=== PATIENT | male | born 1960 | race Caucasian/White ===

== ENCOUNTER → 2019-01-30 | Outpatient (CLI) | payer MEDICARE, SELFPAY ==
[2019-01-30 17:28] LABS: Absolute Lymphocyte Count 2.19 X10^3/uL (0.83-4.51); Absolute Neutrophil Count 5.4 X10^3/uL (2.0-7.7); Basophil# 0.05 X10^3/uL; Basophil% 0.6 % (0-1); Eosinophil# 0.29 X10^3/uL; Eosinophils% 3.4 % (0-5); Hematocrit 48.5 % (40-54); Hemoglobin 16.9 g/dL (13.0-16.5); Lymphocyte # 2.19 X10^3/ul (4.0); Lymphocyte % 25.5 % (19-41); Mean Corp Hgb Conc 34.8 g/dL (32-36); Mean Corpuscular Hgb 31.6 pg (27.0-32.0); Mean Corpuscular Volume 90.7 fL (80-94); Mean Platelet Vol. 10.2 fl (6.2-12.0); Monocyte# 0.63 X10^3/uL; Monocyte% 7.3 % (0-10); NRBC Flagged by Analyzer 0 % (0-5); Platelet Count 205 K/mm3 (150-450); RBC Distribution Width CV 12.1 % (11.6-14.6); RBC Distribution Width SD 39.9 fl (35.1-43.9); Red Blood Count 5.35 M/mm3 (4.6-6.2); White Blood Count 8.6 K/mm3 (4.4-11.0)
[2019-01-30 18:05] LABS: AST(SGOT) 36 U/L (15-37); Alanine Aminotransfer ALT/SGPT 72 U/L (16-61); Albumin, Serum 3.6 g/dL (3.2-5.0); Alkaline Phosphatase 72 U/L (45-117); Anion Gap 8 (5-15); BUN 12 mg/dL (7-18); BUN/Creat Ratio 13.4 RATIO (10-20); Calcium,Total 8.9 mg/dL (8.5-10.1); Chloride 105 mmol/L (98-107); Cholesterol 190 mg/dL (200); Creatinine, Serum 0.89 mg/dL (0.70-1.30); EST Glomerular Filtration Rate 92 mL/min (>60); Est Glom Filt Rate - Afr Amer 112 mL/min (>60); Globulin 3.5 g/dL (2.2-4.2); Glucose 84 mg/dL (74-106); High Density Lipoprotein 39 mg/dL; PSA,Total - Annual Screen 2.01 ng/mL (0.00-4.00); Potassium 3.7 mmol/L (3.5-5.1); Protein, Total 7.1 g/dL (6.4-8.2); Sodium Level 142 mmol/L (136-145); Triglycerides 160 mg/dL; Very Low Density Lipoprotein 32 mg/dL (5-40)
== END | disposition home or self-care (01) ==
LOC: LAB 16:23
PROVIDERS: Family Provider Family Medicine; PCP Family Medicine; Visit Provider Family Medicine
DX: E78.5 Hyperlipidemia, unspecified (principal); R07.9 Chest pain, unspecified; Z12.5 Encounter for screening for malignant neoplasm of prostate; I10 Essential (primary) hypertension
CPT/HCPCS: 36415; 80053; 80061; 84153; 85025; G0103

== ENCOUNTER → 2019-02-08 06:22 | Outpatient (CLI) | payer MEDICARE, SELFPAY ==
--- NOTE | 2019-02-08 09:29 | STRESSREP_ITS ---
Stress Test Report Date: 02/08/2019 Procedure: Pharmacologic stress nuclear imaging study Indications: Chest pain Consent: Per the patient Procedure: The patient underwent pharmacologic (Regadenoson) evaluation with a peak heart rate of 99 beats per minute (61 %predicted maximal heart rate) and a peak blood pressure of 140/62 mmHg. The baseline ECG demonstrated normal sinus rhythm. EKG during lexiscan infusion revealed no significant change from baseline. EKG post infusion revealed no significant change from baseline [There were no cardiac dysrhythmias pretest, during pharmacologic infusion, or recovery]. [There was no complaint of chest discomfort during pharmacologic infusion or recovery]. The examination was discontinued secondary to completion of protocol. Impression: 1. Lexiscan stress test test is negative for Lexiscan infusion induced EKG changes of ischemia. 2. Lexiscan stress test test is negative for Lexiscan infusion induced chest pain. 3. Results of the nuclear portion of the test is as below Myocardial perfusion imaging study: Technique: The patient was injected with 14.2 millicuries of technetium 99m Cardiolite and subsequently rest SPECT Cardiolite nuclear imaging was obtained in the horizontal long, vertical long, and short axis views. The patient underwent pharmacologic (Regadenoson) evaluation. Please see above for details. The patient was injected with 44.4 millicuries of technetium 99m Cardiolite and subsequently stress SPECT Cardiolite nuclear imaging was obtained in the horizontal long, vertical long, and short axis views. A gated Cardiolite study at peak stress was obtained. Interpretation: Rest and stress SPECT Cardiolite nuclear imaging status post realignment, normal ization, and attenuation correction demonstrate decreased myocardial radioisotope uptake in the inferior wall on both rest and stress images prior to attenuation correction. After recognition correction there is normal myocardial radioisotope uptake. These findings are suggestive of diaphragmatic attenuation artifact. Gated images reveal no significant regional wall motion abnormalities. The reported LVEF is greater than 70 %. Impression: 1. There is no evidence of significant ischemia or infarction. 2. Estimated ejection fraction is greater than 70%. This note was generated with [employer] software. It may contain incorrect words, spelling, and punctuation that were not noted in checking the note before signing.
== END ==
PROVIDERS: Family Provider Family Medicine; PCP Family Medicine; Referring Provider Family Medicine; Visit Provider Family Medicine
DX: R07.9 Chest pain, unspecified (principal); R06.09 Other forms of dyspnea
CPT/HCPCS: 78452; 93017; A9500; A4216; J2785

== ENCOUNTER → 2019-02-13 12:56 | Outpatient (CLI) | payer MEDICARE, SELFPAY ==
--- NOTE | 2019-02-13 13:00 | ART_ITS ---
Reason For Study: PAD Procedure A bilateral lower extremity continuous wave Doppler with analog waveform analysis and ankle brachial indexes. Left Segmental Pressures Left brachial= 115mmHg. Left posterior tibial artery = 152mmHg. Left dorsalis pedis artery = 145mmHg. Left digit = 119 mmHg. The left dorsalis pedis waveforms are triphasic. The left posterior tibial artery waveforms are triphasic. Right Segmental Pressures Right brachial= 137mmHg. Right posterior tibial artery = 147mmHg. Right dorsalis pedis artery = 132mmHg. Right digit = 105 mmHg. The right dorsalis pedis waveforms are triphasic. The right posterior tibial artery waveforms are triphasic. Indices The right ankle brachial index by the dorsalis pedis is .96. The right ankle brachial index by the posterior tibial artery is 1.07. The right digital-brachial index is .77. The left ankle brachial index by the dorsalis pedis is 1.06. The left ankle brachial index by the posterior tibial artery is 1.11. The left digital-brachial index is .87. Interpretation Summary Triphasic Doppler waveforms are noted at ankle level bilaterally. Resting ankle-brachial indices are normal bilaterally. Digital-brachial indices are normal bilaterally. There is no evidence of significant arterial occlusive disease in the lower extremities bilaterally. Incidental note is made of brachial artery pressures which differ by more than 20 mmHg. This may be due to arterial stenosis in the left upper extremity, which could manifest as a subclavian steal phenomenon. Clinical correlation is advised. Ordering Physician: Rd Mckeon Referring Physician: Rd Mckeon Performed By: HOMER OBRIEN MICKY
== END ==
PROVIDERS: Family Provider Family Medicine; PCP Family Medicine; Referring Provider Family Medicine; Visit Provider Family Medicine
DX: I73.9 Peripheral vascular disease, unspecified (principal); I10 Essential (primary) hypertension; E78.5 Hyperlipidemia, unspecified
CPT/HCPCS: 93922

== ENCOUNTER → 2019-06-11 16:42 | Outpatient (CLI) | payer MEDICARE, SELFPAY ==
--- NOTE | 2019-06-11 16:44 | CT_ITS ---
STUDY: CT ABDOMEN AND PELVIS WITHOUT CONTRAST REASON FOR EXAM: Male, 58 years old. Gross hematuria RADIATION DOSAGE (If Supplied By Facility): DLP = ( 718.49 ) mGycm TECHNIQUE: Transaxial images were obtained from the dome of the diaphragm to the symphysis pubis without oral contrast, and without intravenous contrast. Sagittal and coronal images were reconstructed. Individualized dose optimization techniques were used for this CT. COMPARISON: None. FINDINGS: Evaluation of the abdominal viscera is limited in the absence of intravenous contrast. The visualized lung bases are clear. The visualized portions of the heart and pericardium are within normal limits. Gallbladder is absent or contracted. The liver demonstrates an unremarkable unenhanced appearance. The left hepatic 1.1 cm cyst is present. The spleen is normal in size. The pancreas demonstrates an unremarkable unenhanced appearance. The adrenal glands are within normal limits. There are no obstructing renal stones. There is a right renal lower pole 1 mm stone. There is a right renal midpole 1.2 cm low-density lesion likely representing a cyst. There is no hydronephrosis. Left renal cysts are present measuring up to 4.8 cm. Normal visualized stomach. There is no bowel obstruction or inflammation. Prominent stool is present throughout the colon. The aorta is normal in caliber. There is no abdominal or pelvic free air, free fluid, fluid collection or lymphadenopathy. There are no destructive osseous lesions. A fat-containing right inguinal hernia is present. CT/Abdomen/Pelvis without Cont IMPRESSION: Left renal cyst. Probable right renal midpole cyst. If further clinical concern, consider renal ultrasound. Right renal lower pole nonobstructing 1 mm stone. Fat-containing right inguinal hernia. Prominent stool within the colon. Electronically Signed: Alban Rodriguez, at 20:14 EST Tel , Service support ,
== END ==
PROVIDERS: Family Provider Family Medicine; PCP Family Medicine; Referring Provider Family Medicine; Visit Provider Family Medicine
DX: R31.9 Hematuria, unspecified (principal)
CPT/HCPCS: 74176

== ENCOUNTER → 2021-06-16 12:10 | Outpatient (CLI) | payer MEDICARE, SELFPAY ==
--- NOTE | 2021-06-16 12:13 | RAD_ITS ---
STUDY: X-RAY CHEST REASON FOR EXAM: Male, 60 years old. Chest pain. TECHNIQUE: Frontal and lateral views of the chest. COMPARISON: 08/17/2014. FINDINGS: Stable hyperexpansion with hyperlucency. Blunting of the left costophrenic angle unchanged. Stable healed parenchymal granulomatous calcifications. There is no demonstrated pleural abnormality. Normal size heart. Normal mediastinum and pedro. Normal visualized pulmonary arteries. Normal visualized aortic arch and descending thoracic aorta. Normal visualized thoracic spine. Normal visualized ribs, clavicles, and shoulders. There is no demonstrated abnormality of the visualized soft tissue structures of the upper abdomen. RAD/Chest PA and Lateral IMPRESSION: Stable chest with no acute or active cardiopulmonary disease. Electronically Signed: Paul Zelaya MD at 9:14 EST , Service support ,
== END ==
PROVIDERS: PCP Family Medicine; Referring Provider Family Medicine; Visit Provider Family Medicine
DX: R07.9 Chest pain, unspecified (principal)
CPT/HCPCS: 71046

== ENCOUNTER → 2023-01-03 | Outpatient (CLI) | payer MEDICARE, SELFPAY | END | disposition home or self-care (01) | PROVIDERS: PCP Family Medicine; Visit Provider Surgery | DX: K42.9 Umbilical hernia without obstruction or gangrene (principal) | CPT/HCPCS: 87077; 87081 ==

== ENCOUNTER → 2023-01-06 | Outpatient (CLI) | payer MEDICARE, SELFPAY | END | disposition home or self-care (01) | PROVIDERS: PCP Family Medicine; Referring Provider Family Medicine; Visit Provider Family Medicine | DX: Z00.00 Encounter for general adult medical examination without abnormal findings (principal); Z12.5 Encounter for screening for malignant neoplasm of prostate; I10 Essential (primary) hypertension; R06.09 Other forms of dyspnea; E78.5 Hyperlipidemia, unspecified ==

== ENCOUNTER → 2023-01-13 | Outpatient (CLI) | payer MEDICARE, SELFPAY ==
[2023-01-13 07:19] LABS: Absolute Lymphocyte Count 1.96 X10^3/uL (0.83-4.51); Absolute Neutrophil Count 4.8 X10^3/uL (2.0-7.7); Basophil# 0.07 X10^3/uL; Basophil% 0.9 % (0-1); Eosinophil# 0.24 X10^3/uL; Eosinophils% 3.1 % (0-5); Hemoglobin 17.2 g/dL (13.0-16.5); Lymphocyte # 1.96 X10^3/ul (0.83-4.51); Lymphocyte % 25.1 % (19-41); Mean Corp Hgb Conc 34.4 g/dL (32-36); Mean Corpuscular Hgb 31.3 pg (27.0-32.0); Mean Corpuscular Volume 91.1 fL (80-94); Mean Platelet Vol. 9.5 fl (6.2-12.0); Monocyte# 0.66 X10^3/uL; Monocyte% 8.5 % (0-10); NRBC Flagged by Analyzer 0 % (0-5); Neutrophil # 4.84 X10^3/uL (2.7-7.7); Platelet Count 209 K/mm3 (150-450); RBC Distribution Width CV 12.5 % (11.6-14.6); RBC Distribution Width SD 41.7 fl (35.1-43.9); Red Blood Count 5.49 M/mm3 (4.6-6.2); White Blood Count 7.8 K/mm3 (4.4-11.0)
[2023-01-13 07:42] LABS: ALB/GLOB Ratio 0.9 RATIO (0.9-2.4); AST(SGOT) 35 U/L (15-37); Alanine Aminotransfer ALT/SGPT 49 U/L (16-61); Albumin, Serum 3.6 g/dL (3.2-5.0); Alkaline Phosphatase 70 U/L (45-117); Anion Gap 6 (5-15); BUN 14 mg/dL (7-18); Calcium,Total 8.9 mg/dL (8.5-10.1); Chloride 105 mmol/L (98-107); Cholesterol 161 mg/dL (200); EST Glomerular Filtration Rate 80 mL/min (>60); Est Glom Filt Rate - Afr Amer 97 mL/min (>60); Globulin 3.9 g/dL (2.2-4.2); Glucose 112 mg/dL (74-106); High Density Lipoprotein 41 mg/dL; PSA,Total - Annual Screen 2.97 ng/mL (0.00-4.00); Potassium 3.6 mmol/L (3.5-5.1); Protein, Total 7.5 g/dL (6.4-8.2); Sodium Level 140 mmol/L (136-145); Triglycerides 224 mg/dL; Very Low Density Lipoprotein 45 mg/dL (5-40)
[2023-01-13 10:55] LABS: Hemoglobin A1c 5.5 % (3.8-5.6)
--- NOTE | 2023-01-13 12:12 | STRESSREP_ITS ---
Stress Test Report Date: 01/13/2023 Procedure: Pharmacologic stress nuclear imaging study Indications: Chest pain Consent: Per the patient Procedure: The patient underwent pharmacologic (Regadenoson 0.4mg ) evaluation with a peak heart rate of 85 beats per minute (54%predicted maximal heart rate) and a peak blood pressure of 120/84 mmHg. The baseline ECG demonstrated normal sinus rhythm. The peak pharmacologic ECG demonstrated no ischemic changes. There were no cardiac dysrhythmias pretest, during pharmacologic infusion, or recovery. There was no complaint of chest discomfort during pharmacologic infusion or recovery. The patient was injected with 14.7 millicuries of technetium 99m Cardiolite and subsequently rest SPECT Cardiolite nuclear imaging was obtained in the horizontal long, vertical long, and short axis views. The patient underwent pharmacologic (Regadenoson) evaluation. The patient was injected with 44.6 millicuries of technetium 99m Cardiolite and subsequently stress SPECT Cardiolite nuclear imaging was obtained in the horizontal long, vertical long, and short axis views. A gated Cardiolite study at peak stress was obtained. The examination was stopped secondary to completion of protocol. Rest and stress SPECT Cardiolite nuclear imaging status post realignment, normalization, and attenuation correction demonstrate no fixed or reversible perfusion defects. There is end systolic thickening and brightening. The gated Cardiolite study demonstrates myocardial thickening and inward wall motion. The reported LVEF is 67%. Impression: 1. Pharmacologic (Regadenoson) evaluation 2. Peak pharmacologic ECG with no ischemic changes. 3. There were no cardiac dysrhythmias pretest, during pharmacologic infusion, or recovery. 5. Rest and stress SPECT Cardiolite nuclear imaging demonstrate relative uniform tracer uptake and myocardial perfusion appearing within normal limits. 6. The gated Cardiolite study reports an LVEF of 67%. This note was generated with [employer] software. It may contain incorrect words, spelling, and punctuation that were not noted in checking the note before signing.
== END | disposition home or self-care (01) ==
PROVIDERS: PCP Family Medicine; Referring Provider Family Medicine; Visit Provider Family Medicine
DX: R07.9 Chest pain, unspecified (principal); I10 Essential (primary) hypertension; R06.09 Other forms of dyspnea; E78.5 Hyperlipidemia, unspecified; Z12.5 Encounter for screening for malignant neoplasm of prostate; R73.01 Impaired fasting glucose
CPT/HCPCS: 36415; 78452; 80053; 80061; 83036; 84153; 85025; 93017; A9500; A4216; G0103; J2785

== ENCOUNTER → 2023-01-16 | Outpatient (CLI) | payer MEDICARE, SELFPAY ==
--- NOTE | 2023-01-16 17:01 | CT_ITS ---
INDICATION: Small bowel obstruction EXAMINATION: CT ABDOMEN AND PELVIS WITH CONTRAST - CT Abdomen And Pelvis W/ Contrast Injection TECHNIQUE: Helically acquired images were obtained of the abdomen and pelvis following IV contrast. A radiation dose optimization technique was used for this scan. IV Contrast dosage and agent: 100 mL Isovue-300 Oral contrast: 100 mL Redicat. COMPARISON: June 11, 2019. FINDINGS: LOWER CHEST: Lung bases are clear. No cardiomegaly or pericardial effusion. LIVER: Homogeneous. No focal mass. GALLBLADDER AND BILIARY TREE: No calcified gallstones. No gallbladder distension or wall edema. No intra- or extrahepatic biliary ductal dilation. PANCREAS: No focal cystic or solid mass. SPLEEN: Normal size without focal cystic or solid mass. ADRENAL GLANDS: No nodules. KIDNEYS AND URETERS: 7.1 cm exophytic left renal lower pole with single thin septation increased in size from 4.8 cm June 11, 2019. Evaluation for internal nodularity is limited by beam hardening artifact and motion. Other bilateral Bosniak 1 renal cysts for which no imaging follow-up is required. Normal renal size and position. No hydronephrosis. Minimal bilateral senescent perinephric stranding. PERITONEUM: No ascites or free air. No other fluid collection. BOWEL: No acute gastric finding. No small bowel distention or focal wall thickening. Oral contrast extends into the mid to distal ileum. Unremarkable terminal ileum. Normal small appendix with tip remaining in the pelvis, extending toward a right inguinal fat-containing hernia. Cecum is located in the posterior central pelvis. No gross colonic wall thickening. Moderate colonic stool. LYMPH NODES: No enlarged mesenteric or retroperitoneal lymph nodes. VESSELS: Aortic atherosclerosis without ectasia.. URINARY BLADDER: Unremarkable. REPRODUCTIVE ORGANS: Prostate 5.1 x 4.1 x 5.2 cm (55ml). ABDOMINAL WALL: Fat-containing right inguinal hernia without inflammation.. Prior umbilical hernia repair suggested, unchanged from June 13, 2019. BONES: No lytic or blastic abnormality. Lumbar laminectomy changes with L3-4, L4-5 and L5-S1 disc spacers, L4-5 and L5-S1 anterior fixation, and L3, L4, and S1 posterior transpedicular fixation. No evidence for hardware failure or fracture. CT/Abdomen/Pelvis WITH Contrast IMPRESSION: No evidence of bowel obstruction. Moderate colonic stool as can be seen with constipation. Interval enlargement of indeterminate left renal lower pole exophytic 7.1 cm cystic mass. Thickness of the dividing septation is difficult to assess due to motion and beam hardening artifact from spinal hardware. Recommend renal ultrasound to assess for internal nodularity. If ultrasound is not definitive, MRI of the kidney may be able to better characterize Right inguinal fat-containing hernia without inflammation. Large prostate. Electronically Signed: Anoop Hernandez MD at 9:06 EDT ,
== END | disposition home or self-care (01) ==
LOC: CT 16:58
PROVIDERS: PCP Family Medicine; Referring Provider Surgery; Visit Provider Surgery
DX: Z87.19 Personal history of other diseases of the digestive system (principal)
CPT/HCPCS: 74177; Q9967

== ENCOUNTER 2023-02-03 09:28 | Day surgery (SDC) | payer MEDICARE, SELFPAY ==
--- NOTE | 2023-02-03 | HERN_PTH ---
PATIENT: ALISIA LIZARRAGA LOC: [facility] [place] U#:[id number] AGE/SX: 62/M ROOM: RE02/03/[address]: Dr. Glynn Vazquez MD : 1960 BED: DIS: 02/03/2023 SPEC #: [id number] RECD: 02/03/23 14:25 STATUS: MAGALY REYoko #: [id number] ADALGISA: 02/03/23 00:[address]: Glynn Vazquez DEPT: SURGICAL PATHOLOGY RECD BY: Francisco Mujica ENTERED: 02/06/23 08:59 SP TYPE: Hernia OTHR DR: Dr. Rd Mckeon, DO Tissues: A - HERNIA B - LIPOMA OF CORD Procedures: Surgery Specimen Level II Surgery Specimen Level III HEADER OPERATION: Hernia, open inguinal with mesh PRE-OP DIAGNOSIS: Right inguinal hernia TISSUE SUBMITTED: A - Hernia contents, B - Cord lipoma MICROSCOPIC DIAGNOSIS A. Hernia contents, excision: Fibrofatty tissue with vascular congestion consistent with hernia contents. B. Cord lipoma, excision: Mature adipose tissue with vascular congestion consistent with cord lipoma. AM:annalee 02/07/2023 MICROSCOPIC DESCRIPTION Slides are reviewed. GROSS DESCRIPTION A - Received in fixative is one container labeled with the patient's name and designated hernia contents. The specimen consists of an irregular fragment of garcia-yellow fibrofatty tissue measuring 5.0 x 4.5 x 1.0 cm. Serial sections do not reveal mass lesions. Sprayer Hand sections are submitted in one cassette. B - Received in fixative is one container labeled with the patient's name and designated cord lipoma. The specimen consists of an elongated fragment of yellow fatty tissue measuring 5.5 cm in length and 1.0 cm in diameter. Serial sections reveal homogenous yellow cut surfaces. Sprayer Hand sections are submitted in one cassette. / AM:annalee 02/06/2023 TC:1 CPT: 06151, 54080
[2023-02-03 09:51] VITALS: BP 134/79; PULSE 60; RESP 16; TEMP 36.3; O2SAT 95; BMI 31.0
[2023-02-03] MEDS: Lactated Ringers 1,000 ML 15 ML IV ×2 (10:10→13:27)
--- NOTE | 2023-02-03 11:02 | PCM.HP.BLA ---
History and Physical Date of Admission: 02/03/23 Date of Service: 01/03/23 MR#: [id number] Acct: [id number] Name: AMARA LIZARRAGA Rep #: [id number] : 1960 Provider: Dr. Glynn Vazquez MD Age/Sex: 62/M Location: [facility] Status: Signed Intake Vital Signs 01/03/2315:13 Height 5 ft 11 in Weight: 228 lb BMI 31.8 BP 130/82 H Blood Pressure Location Rt brachial Position Sitting Respiration 17 Pulse 70 Pulse Source Monitor Temp 97.6 F L Temp Source Temporal Pulse Oximetry (%) 94 Oxygen Delivery Method room air Intake Visit Reasons: INGUINAL HERNIA Chief Complaint: hernia Is patient in pain?: Yes Allergies codeine Allergy (Verified 01/03/23 15:15) Itching Medications hydrochlorothiazide 50 mg tablet 50 mg PO DAILY 08/17/14 [History Confirmed 01/03/23] omeprazole 10 mg capsule,delayed release 10 mg PO DAILY 08/17/14 [History Confirmed 01/03/23] aspirin 81 mg chewable tablet 81 mg PO DAILY@0800 ##90 08/20/14 [Rx Confirmed 01/03/23] atorvastatin 40 mg tablet 40 mg PO QHS #30 TABLETS 08/20/14 [Rx Confirmed 01/03/23] PFSH Social History (Updated 01/03/23 @ 15:13 by Dominique Haider) Smoking Status: Former smoker alcohol intake: never substance use type: does not use HPI HPI HPI: Patient is a 62-year-old male who presents for evaluation of a right inguinal hernia. He is referred from Dr. Mckeon. This finding was first noticed by CAT scan incidentally in 2019. Patient is not able to recall how this occurred. However, he reports that since becoming aware of this hernia he has noticed both pain and growth of the hernia. He notes that the pain is particularly likely during a coughing episode or when moving the wrong direction. He denies any impact from a time of day standpoint. He estimates that it has grown to about the size of his hand from hardly detectable previously. He denies any unexplained absence of bowel activity. When queried about his bowels, he states that they are all over the place and describes alternating between diarrhea and constipation for the last 1 year. He states that he primarily deals with diarrhea. He reports that he can go 5-7 times in a day but then may go 3 days without a bowel movement. He confirms that he has had a prior colonoscopy, but estimates that it has been 12 years ago or so. He states that his last colonoscopy was with Dr. Rosenthal of the [facility] here in [place]. He denies any history of polyps. He is not noticing any blood or dark stools with his bowel movements. He denies any straining with his bowel movements. Mr. Lizarraga believes that his niece was diagnosed with Crohn's disease. Patient has a personal history of smoking, but states that he is currently vaping and this is led to him being able to come off of cigarettes. Patient has no personal history of recurrent cutaneous infections including staph. Pertinent surgical history includes: 4 prior back surgeries of the lower spine, laparoscopic cholecystectomy, and 3 umbilical hernia repairs including 2 mesh patch repairs and a laparoscopic mesh repair. Patient notes that during the discussion about a possible surgery his PCP scheduled him for a stress test and this is now pending for 01/13/2023. ROS General General: Yes fatigue; No weight change, appetite, colon cancer, breast cancer or weakness HEENT HEENT: No difficulty swallowing, eye injury, eye surgery, swollen glands or hoarseness Endo Endocrine: No thyroid disease, diabetes mellitus, thyroid cancer, Hair loss, heat intolerance or cold intolerance Skin Skin: No rash or changing moles Musc Musculoskeletal: Yes back problems and arthritis; No rheumatoid arthritis, gout or joint pain Cardio Cardiovascular: No murmur, pacemaker, heart disease, atrial fibrillation, high blood pressure, heart attack, heart stent, palpitations, shortness of breat with exertion or chest pain Psych Psychiatric: No depression, anxiety or hearing voices Resp Respiratory: No shortness of breath, No sleep apnea, No cough, No COPD, No asthma, No emphysema and No wheezing Gastro Gastrointestinal: Yes abdominal pain, Yes nausea or vomiting, Yes diarrhea, Yes constipation, No blood in stool, Yes acid reflux, No hemorrhoids, No ulcers, No gallbladder problem and No black,tarry stools Jeffery Hematologic: No blood thinners, No blood disorders, No bleeding, No anemia and No blood clots Neuro Neurologic: No system reviewed and no additional complaints, except as documented, No as per HPI, No abnormal gait, No abnormal hearing, No abnormal movements, No abnormal speech, No behavioral changes, No burning sensations, No confusion, No convulsions, No disequilibrium, No dizziness, No localized weakness, No frequent falls, No headache(s), No lack of coordination, No loss of vision, No memory loss, Yes numbness, No other visual disturbances, No radicular pain, No restless legs, No sensory deficit, No syncope, Yes tingling, No tremor(s), No weakness and No other Exam Const General: cooperative and no acute distress Orientation: alert, awake and oriented x3 Resp Effort & Inspection: normal respiratory effort Auscultation: no rales, no rhonchi and no wheezes Cardio Rate: regular rate Rhythm: regular rhythm GI Other: Nondistended, numerous scars including port site scars from prior laparoscopy as well as scars around umbilicus. There is also a approximately 5 cm transverse scar which patient states was used for an anterior approach on one of his spine surgeries. Other: Bilaterally descended testicles. No hernia defect palpable on the left. Indirect hernia defect with tenderness palpable on the right. Assessment and Plan Assessment and Plan (1) Inguinal hernia of right side without obstruction or gangrene: Status: Acute Comment: Patient is a 62-year-old male who presents for his first consultation visit related to a right inguinal hernia. This hernia was first noted incidentally in 2019, but has become more symptomatic with pain and growth. Because of these issues patient is interested in having this hernia repaired. By exam this represents a right indirect hernia defect. In eliciting Mr. Lizarraga surgical history, he describes at least 3 umbilical hernia repairs with mesh as well as a laparoscopic cholecystectomy and finally a spinal surgery that was done via an anterior approach. He also shares that he had an admission in the past for a small bowel obstruction due to adhesive disease. With this history and his limited physical activity on the account of his disability from his chronic back pain, I believe the most appropriate surgical recommendation would be to proceed with an open right inguinal hernia repair with mesh. Mr. Lizarraga and his expressed understanding for this rationale and state they wish to get the hernia repair scheduled soon, but I have requested delaying until we know the results of his pending stress test. I am also sending him for a CT scan of the abdomen and pelvis given his prior surgical history for preoperative planning purposes. Plan: ? Tentatively plan for open right inguinal hernia repair with mesh ? Follow-up pending stress test ? Follow-up requested CT imaging of the abdomen pelvis I have examined the patient the following changes are noted: Patient had his stress test completed and there were no signs of ischemic change. He denies any interval changes otherwise. Procedure and post procedure expectations?including lifting restrictions were reviewed. Patient nor his have no further questions. Proceed the operating room for planned right inguinal hernia repair with mesh.
[2023-02-03] MEDS: Cefazolin 2 GM in 0.9% Normal Saline 100 ML IV (11:11)
[2023-02-03] MEDS: Bupivacaine 0.25% 30 ML Vial (11:18)
--- NOTE | 2023-02-03 12:40 | PCM.OPRPT ---
Report of Operation Date of Procedure: 02/03/23 Pre-Operative Diagnosis: Right inguinal hernia Post-Operative Diagnosis: Right direct inguinal hernia with cord lipoma Surgery/Procedure Performed:: Open right inguinal hernia repair (Devon type) with mesh Description of Surgical Findings:: After appropriate identification in the preoperative holding area and confirmation of consents, patient was brought to the operating room and positioned supine on the operating room table. There he was induced with a general anesthetic and preoperative antibiotics were begun. Patient's operative site was confirmed and the area was prepared with clipping of pubic hair present in the operative field. The lower abdomen and upper pelvis were then sterilely prepped and draped in usual standard fashion. A formal timeout followed to confirm patient and the procedure. Procedure was begun with a oblique 8 cm incision extending from just superior and lateral to the pubic tubercle laterally towards the notch of the anterior superior iliac spine. This was extended deeply through the subcutaneous tissues with use of electrocautery. A crossing vein was ligated with the 3-0 Vicryl suture ligature. As we sought the external oblique aponeurosis the only thing we saw immediately was bulging hernia contents which appeared to be coming through a enlarged external ring. Therefore we shifted the dissection somewhat laterally and came down upon the external oblique aponeurosis. The external oblique aponeurosis was opened in the orientation of its fibers after bluntly spreading beneath it to displace any underlying ilioinguinal nerve. Then the cord was bluntly from the inguinal canal. It was placed within a Jocelyn drain and retracted laterally. With some sweeping motions of the remaining adherent cremasteric fibers were able to visualize the pubic tubercle medially. We then explored the cord contents for any signs of a hernia sac but no indirect hernia sac was visualized apart from the structures of the spermatic cord and a smaller cord lipoma. Some additional soft tissue with cremasteric fibers and lobules of adipose were amputated off the cord as they appear to be devascularized and were submitted to pathology as hernia contents. Patient did have a moderately large direct inguinal hernia defect with bulging preperitoneal fat protruding through the floor of the inguinal canal. The cord lipoma was freed from the cord circumferentially and proximally towards the internal ring. Just above the internal ring opening the cord lipoma was suture ligated and amputated. This tissue was passed off the field for a specimen labeled as cord lipoma. Then to facilitate mesh placement I placed a series of interrupted 2-0 Ethibond sutures to approximate the falx inguinalis to the area of the iliopubic tract and thereby excluding the contents coming through the direct defect. With this inguinal canal floor reestablished I requested a Bard keyhole mesh. This mesh was first tacked medially to the periosteum of the pubic tubercle in an interrupted fashion using Ethibond suture. Then the mesh was tacked to the floor of the inguinal canal along the shelving edge laterally and inferiorly as well as to the internal oblique fibers medially and superiorly using interrupted Ethibond. The Kennedy drain was removed and spermatic cord was returned to the inguinal canal. Hemostasis was confirmed. Then the tails of the mesh were placed about the cord and approximated with a [id number] Ethibond suture such that there was space enough to accommodate a fingertip. The external oblique was closed in a running fashion using 3-0 Vicryl. To close down the space I then used a second 3-0 Vicryl running suture to reapproximate Humberto's fascia. The wound was copiously irrigated and hemostasis was verified. A series of interrupted deep dermal sutures were used to approximate the wound. Additional local anesthetic was infiltrated about the wound edges for a total volume of 30 mL 0.25% bupivacaine. Finally a 4-0 Monocryl was used to perform a subcuticular suture to reapproximate the skin. Steri-Strips and a OpSite dressing were applied. Patient was awoken from general anesthetic and taken to PACU for ongoing recovery. Surgeon: Glynn Vazquez tafe lecturer: Jose Melara Type of Anesthesia: General/Supplemental Anesthesiologist: Gio Maciel Specimen's removed: 1) Cord contents 2) Cord lipoma Estimated Blood Loss (mL): 10mL Description of Procedure: Oblique incision 8 cm in length. Bard keyhole mesh size 10 x 4.5 cm Grafts/Implants Used: Bard preshaped keyhole mesh Lot [id number], reference [id number] Complications None Admit VTE Documentation VTE Mechan Device Prophylaxis: SCD's Procedures Digestive 40xxx-49xxx: 47948 Prp i/anny init reduc >5 yr
--- NOTE | 2023-02-03 12:44 | EX.PCM.DISCH ---
Discharge Instructions Diet Discharge Diet: No restrictions Activity Discharge Activity: May Not Drive (No driving while using narcotic pain medication) and May Shower (Postoperative day 1) May shower in (days): 2 Ice area for (Minutes): 20 Lifting Restrictions: No lifting greater than 10 for 5 weeks after surgery Dressing / Incision Call your doctor if your incision/area has: Continuous Slow Oozing, Increased Pain/ Swelling, Increased Redness, Foul Smelling Discharge and Swelling at the incision site Call your doctor if you observe: Fever of 101 or Higher and Inability to urinate Remove Dressing in: 2 days (Please leave Steri-Strips intact until they fall off spontaneously or are taken off at your follow-up visit) Cleanse incision/area with: Soap & Water Follow Up Care Please Follow Up With: Glynn Vazquez MD When: 7-10days postop Test Results: Test results from this visit will be discussed in further detail at your follow-up appointment, if applicable. Discharge Plan Admission Primary Reason for Your Visit: Right inguinal hernia repair Attending Provider: Glynn Vazquez Primary Care Provider: Rd Mckeon Discharge Orders/Prescriptions Prescriptions: New oxycodone 5 mg tablet 5 mg PO Q6H PRN (Reason: pain) 3 Days Qty: 14 0RF Continued hydrochlorothiazide 50 MG tablet 25 mg PO DAILY Patient Comments: FOR KIDNEY STONES omeprazole 10 MG capsule 40 mg PO BID atorvastatin 40 MG tablet 40 mg PO QHS Qty: 30 0RF Referrals / Follow Up: Rd Mckeon DO [Primary Care Provider] - Disposition Disposition (needs filled in before D/C Order can be placed): Home, Self Care
[2023-02-03 12:49] VITALS: BP 126/66; BP 134/79; PULSE 65; RESP 15; TEMP 36.1; O2SAT 95
[2023-02-03 13:00] VITALS: BP 111/66; BP 134/79; PULSE 82; RESP 16; O2SAT 92
[2023-02-03 13:15] VITALS: BP 103/69; BP 134/79; PULSE 45; RESP 16; O2SAT 96
--- NOTE | 2023-02-03 13:22 | EKG12_ITS ---
Test Reason : Blood Pressure : / mmHG Vent. Rate : 043 BPM Atrial Rate : 043 BPM P-R Int : 144 ms QRS Dur : 090 ms QT Int : 472 ms P-R-T Axes : 004 018 025 degrees QTc Int : 398 ms Marked sinus bradycardia Abnormal ECG When compared with ECG of 17-AUG-2014 19:10, Vent. rate has decreased BY 39 BPM Confirmed by LASHAUN LLANES ([id number]), online content editor SANTI VERNON ([id number]) on 02/14/2023 9:37:55 AM Referred By: Glynn Vazquez Confirmed By:LASHAUN LLANES
[2023-02-03 13:30] VITALS: BP 105/68; BP 134/79; PULSE 58; RESP 16; TEMP 36.6; O2SAT 95
[2023-02-03] MEDS: oxyCODONE 5 MG Tablet PO (14:09)
[2023-02-03 14:13] VITALS: BP 134/79
--- NOTE | 2023-02-03 15:13 | SUR.PHASEII ---
pt left d/c instructions- pt called and reviewed and than sent in mail
== END 2023-02-03 14:37 | disposition home or self-care (01) ==
LOC: SDC 09:33 → AC 09:34
PROVIDERS: PCP Family Medicine; Referring Provider Surgery; Visit Provider Surgery
PROC: (CPT 49505; principal; 2023-02-03 10:45)
DX: K40.90 Unilateral inguinal hernia, without obstruction or gangrene, not specified as recurrent (principal); G89.29 Other chronic pain; M54.9 Dorsalgia, unspecified; Z87.891 Personal history of nicotine dependence; D17.6 Benign lipomatous neoplasm of spermatic cord
CPT/HCPCS: 49505; 00830; 55520; 88302; 88304; 93005; J7120; C1781; J2405

== ENCOUNTER → 2023-03-03 | Outpatient (CLI) | payer MEDICARE, SELFPAY ==
--- NOTE | 2023-03-03 16:46 | US_ITS ---
EXAM: US RETROPERITONEAL LIMITED, RENAL CLINICAL INDICATION: kidney cyst TECHNIQUE: Limited grayscale and color Doppler sonographic evaluation of the retroperitoneum was performed. COMPARISON: CT abdomen and pelvis, 01/16/2023 FINDINGS: RIGHT KIDNEY: The right kidney measures 12.4 cm in length and contains multiple simple cysts for which no follow-up is indicated. No hydronephrosis. No shadowing calculus. No perinephric collection is demonstrated. LEFT KIDNEY: The left kidney measures 12.3 cm in length and contains multiple simple cysts for which no follow-up is indicated. No hydronephrosis. No shadowing calculus. No perinephric collection is demonstrated. BLADDER: The bilateral ureteral jets are visualized. US/Kidney and Bladder IMPRESSION: Bilateral simple renal cysts for which no follow-up is indicated. Otherwise, normal. Electronically Signed: Alfredo Conrad DO at 22:36 EDT ,
== END | disposition home or self-care (01) ==
LOC: US 16:46
PROVIDERS: PCP Family Medicine; Referring Provider Surgery; Visit Provider Surgery
DX: N28.1 Cyst of kidney, acquired (principal)
CPT/HCPCS: 76770

== ENCOUNTER → 2023-12-21 | Outpatient (CLI) | payer MEDICARE, SELFPAY ==
--- NOTE | 2023-12-21 16:21 | MRI_ITS ---
EXAM: MR HEAD WITHOUT AND WITH INTRAVENOUS CONTRAST CLINICAL INDICATION: new onset vertigo TECHNIQUE: Multiplanar and multisequence MR images of the brain were obtained without and with intravenous contrast. Magnetic field strength 1.5 T. CONTRAST: 20 cc of Clariscan IV. COMPARISON: No relevant prior studies available. FINDINGS: BRAIN AND EXTRA-AXIAL SPACES: Unremarkable. No intra- or extra-axial hemorrhage. No evidence of acute infarct. No intracranial mass or mass effect. There is preservation of the mckinney/white matter interface. Posterior fossa structures are unremarkable. Ventricles are appropriate for age. No hydrocephalus. Basal cisterns are patent. SELLA: Unremarkable. Normal sella turcica, pituitary gland, infundibular stalk, optic chiasm and hypothalamus. AUDITORY SYSTEM: Unremarkable. The internal auditory canals are patent. BONES/JOINTS: Unremarkable. No discrete lytic or blastic abnormalities. SINUSES: Moderate bilateral ethmoid and right maxillary sinus mucosal disease. MASTOID AIR CELLS: Unremarkable as visualized. Clear. ORBITS: Unremarkable as visualized. Both globes, extraocular muscles, optic nerves and retrobulbar fat appear unremarkable. VASCULATURE: Unremarkable as visualized. Normal flow voids in the major intracranial circulation. MRI/Brain W/WO Contrast IMPRESSION: 1. No acute intracranial abnormality. 2. Moderate bilateral ethmoid and right maxillary sinus mucosal disease. Electronically Signed: Glynn Arias MD at 4:57 EDT ,
[2023-12-21 17:23] LABS: CREATININE FINGERSTICK < 1.0 mg/dL (0.70-1.30); EGFR FINGERSTICK > 60.0000 mL/min (>60)
== END | disposition home or self-care (01) ==
PROVIDERS: PCP Family Medicine; Referring Provider Family Medicine; Visit Provider Family Medicine
DX: R42 Dizziness and giddiness (principal); H93.19 Tinnitus, unspecified ear
CPT/HCPCS: 70553; A9575

== ENCOUNTER → 2024-01-19 | Outpatient (CLI) | payer MEDICARE, SELFPAY ==
[2024-01-19 16:51] LABS: Absolute Lymphocyte Count 2.25 X10^3/uL (0.83-4.51); Absolute Neutrophil Count 6.3 X10^3/uL (2.0-7.7); Basophil# 0.09 X10^3/uL; Basophil% 0.9 % (0-1); Eosinophil# 0.23 X10^3/uL; Eosinophils% 2.4 % (0-5); Hematocrit 48.6 % (40-54); Hemoglobin 17.1 g/dL (13.0-16.5); Lymphocyte # 2.25 X10^3/ul (0.83-4.51); Lymphocyte % 23.7 % (19-41); Mean Corp Hgb Conc 35.2 g/dL (32-36); Mean Corpuscular Hgb 30.9 pg (27.0-32.0); Mean Corpuscular Volume 87.9 fL (80-94); Mean Platelet Vol. 10.1 fl (6.2-12.0); Monocyte% 6.3 % (0-10); NRBC Flagged by Analyzer 0 % (0-5); Neutrophil % 66.4 % (47-70); Platelet Count 216 K/mm3 (150-450); RBC Distribution Width CV 12.3 % (11.6-14.6); Red Blood Count 5.53 M/mm3 (4.6-6.2); White Blood Count 9.5 K/mm3 (4.4-11.0)
[2024-01-19 17:28] LABS: Vitamin B12 439 pg/mL (211-911)
[2024-01-19 17:34] LABS: ALB/GLOB Ratio 1.1 RATIO (0.9-2.4); AST(SGOT) 34 U/L (15-37); Alanine Aminotransfer ALT/SGPT 39 U/L (16-61); Albumin, Serum 3.7 g/dL (3.2-5.0); Alkaline Phosphatase 74 U/L (45-117); Anion Gap 7 (5-15); BUN 10 mg/dL (7-18); BUN/Creat Ratio 12.1 RATIO (10-20); Calcium,Total 9.2 mg/dL (8.5-10.1); Chloride 103 mmol/L (98-107); Creatinine, Serum 0.83 mg/dL (0.70-1.30); EST Glomerular Filtration Rate 99 mL/min (>60); Est Glom Filt Rate - Afr Amer 120 mL/min (>60); Globulin 3.5 g/dL (2.2-4.2); Glucose 98 mg/dL (74-106); Potassium 3.3 mmol/L (3.5-5.1); Protein, Total 7.2 g/dL (6.4-8.2); Sodium Level 139 mmol/L (136-145); Thyroid Stim Hormone (TSH) 1.22 uIU/mL (0.358-3.74)
[2024-01-19 17:35] LABS: Hemoglobin A1c 5.3 % (3.8-5.6)
[2024-01-19 18:01] LABS: Erythrocyte Sedimentation Rate 3 mm/hr (0-20)
== END | disposition home or self-care (01) ==
LOC: LAB 16:21
PROVIDERS: PCP Family Medicine; Referring Provider Family Medicine; Visit Provider Family Medicine
DX: G62.9 Polyneuropathy, unspecified (principal); R73.01 Impaired fasting glucose
CPT/HCPCS: 36415; 80053; 82607; 83036; 84443; 85025; 85652

== ENCOUNTER → 2024-04-01 | Outpatient (CLI) | payer MEDICARE, SELFPAY ==
[2024-04-01 18:19] LABS: Anion Gap 7 (5-15); BUN 10 mg/dL (7-18); BUN/Creat Ratio 13.1 RATIO (10-20); Calcium,Total 9.5 mg/dL (8.5-10.1); Chloride 103 mmol/L (98-107); Cholesterol 136 mg/dL (200); Creatinine, Serum 0.76 mg/dL (0.70-1.30); EST Glomerular Filtration Rate 109 mL/min (>60); Est Glom Filt Rate - Afr Amer 132 mL/min (>60); Glucose 93 mg/dL (74-106); High Density Lipoprotein 45 mg/dL; PSA,Total - Annual Screen 4.64 ng/mL (0.00-4.00); Potassium 3.5 mmol/L (3.5-5.1); Sodium Level 138 mmol/L (136-145); Triglycerides 108 mg/dL; Very Low Density Lipoprotein 22 mg/dL (5-40)
== END | disposition home or self-care (01) ==
LOC: BFHLAB 16:30
PROVIDERS: PCP Family Medicine; Referring Provider Family Medicine; Visit Provider Family Medicine
DX: I10 Essential (primary) hypertension (principal); E78.5 Hyperlipidemia, unspecified; Z12.5 Encounter for screening for malignant neoplasm of prostate
CPT/HCPCS: 36415; 80048; 80061; 84153; G0103

== ENCOUNTER → 2024-10-04 | Outpatient (CLI) | payer MEDICARE, SELFPAY ==
[2024-10-04 18:40] LABS: PSA,Total- Diagnostic 3.41 ng/mL (0.00-4.00)
== END | disposition home or self-care (01) ==
LOC: MTLAB 14:19
PROVIDERS: PCP Family Medicine; Referring Provider Family Medicine; Visit Provider Family Medicine
DX: R97.20 Elevated prostate specific antigen [PSA] (principal)
CPT/HCPCS: 36415; 84153